=== PATIENT | female | born 1940 | race Caucasian/White ===

== ENCOUNTER 2016-09-19 08:44 | Day surgery (SDC) | payer MEDICARE, OTHER ==
[~2016-09-19] VITALS: Ht 165.1 cm; Wt 79.4 kg
[~2016-09-19 08:44] MED LIST: ASPI-973 PO; ATRV10T PO; CHLO12TA PO; ESOM20CA39 PO; ESTR1TAB21 PO; FAMO20T PO; GLUC-120 PO; METO100T3 PO; SUCR1TAB PO; Sodium Chloride LOK Flush 10 mL Syringe IV PRN; UBID50TA3 PO; fentaNYL-PF 50 mCg/mL 2 mL Inj IVPUSH PRN
[2016-09-19 09:17] VITALS: BP 134/83; PULSE 82; O2SAT 98
[2016-09-19] MEDS: 0.9% Sodium Chloride 1,000 ML IV SCH ×2 (09:17→09:33)
[2016-09-19 10:02] VITALS: BP 129/54; PULSE 79; RESP 13; O2SAT 96
--- NOTE | 2016-09-19 12:04 | ENDO ---
[address] [address] ENDOSCOPY PROCEDURE PATIENT: SVITLANA ALMANZA : 1940 MR#: [id number] ADMIT: 09/19/2016 JOB ID: [id number] DATE OF SERVICE: 09/19/2016 PRIMARY PROVIDER: Felicia Bonilla DO. PROCEDURE: Colonoscopy. INDICATIONS: A 76-year-old female who reports for colon cancer screening. EQUIPMENT: [email or web address]. SEDATION: 1. Versed 5 mg. 2. Fentanyl 100 mcg. COMPLICATIONS: None identified. BOWEL PREPARATION: Excellent. PROCEDURE INFORMATION: After the risks and benefits were explained, written and verbal informed consent was obtained. The patient was brought into the endoscopy suite placed into the left lateral decubitus position. Sedation was achieved using the above-stated medications with the addition of oxygen via nasal cannula. A digital rectal examination was accomplished and did not elicit any obvious anorectal pathology. The scope was introduced into the rectum and advanced under direct visualization to the cecum as identified by the appendiceal orifice and ileocecal valve. The scope was slowly withdrawn to carefully examine the mucosa for any defects or lesions. Retroflexed views were avoided in the rectum. Multiple direct views were made through the dentate line for exclusion of pathology. The colon was decompressed. The scope removed from the patient who tolerated the procedure well. FINDINGS: No significant polyps, mass lesions, or inflammatory features identified throughout. Some mild diverticulosis in the left colon. ENDOSCOPIC DIAGNOSES: 1. Minimal left-sided diverticulosis. 2. Otherwise visually unremarkable colonoscopy to cecum. RECOMMENDATIONS: Repeat colonoscopy in 10 years' time, sooner should symptoms warrant.
== END 2016-09-19 23:59 | disposition home or self-care (01) ==
LOC: END 08:44
PROVIDERS: ATTEND Internal Medicine Gastroenterology
DX: Z12.11 Encounter for screening for malignant neoplasm of colon (principal); K57.30 Diverticulosis of large intestine without perforation or abscess without bleeding; E78.00 Pure hypercholesterolemia, unspecified; M19.90 Unspecified osteoarthritis, unspecified site; I47.1 Supraventricular tachycardia; K21.9 Gastro-esophageal reflux disease without esophagitis; Z79.82 Long term (current) use of aspirin
CPT/HCPCS: 99153; G0121; G0500; J2250; J7030